=== PATIENT | male | born 1965 | race Caucasian/White ===

== ENCOUNTER 2023-11-21 16:53 | Emergency (ER) | payer OTHER, SELFPAY ==
[2023-11-21 16:58] VITALS: BP 171/107
[2023-11-21 17:30] LABS: % Basophils 0.7 % (0-2); % Immature Granulocytes 0.2 % (0-0.5); % Lymphocytes 14.4 % (20.5-51.1); % Monocytes 8.7 % (1.7-9.3); Absolute Basophils 0.1 10^3/uL (0-0.2); Absolute Eosinophils 0.1 10^3/uL (0-0.7); Absolute Lymphocytes 1.2 10^3/uL (1.2-3.4); Absolute Monocytes 0.7 10^3/uL (0.1-0.6); Absolute Neutrophils 6.2 10^3/uL (1.4-6.5); Hematocrit 41.9 % (39.0-52.0); Hemoglobin 14.9 g/dL (13.0-18.0); Mean Corp Hgb Conc. 35.6 g/dL (33.0-37.0); Mean Corpuscular Hgb 30.2 pg (27.0-31.0); Mean Corpuscular Volume 84.8 fL (80.0-94.0); Nucleated Red Blood Cells % 0 % (-); Platelet Count 208 10^3/uL (130-400); Red Blood Cell Count 4.94 10^6/uL (4.70-6.10); Red Cell Dist. Width 11.9 % (11.5-14.5); White Blood Cell Count 8.3 10^3/uL (4.8-10.8)
[2023-11-21 17:39] LABS: ALT (SGPT) 20 U/L (0-50); AST (SGOT) 31 U/L (17-59); Albumin 4.7 g/dl (3.5-5.0); Alkaline Phosphatase 82 U/L (38-126); Blood Urea Nitrogen 17 mg/dl (9-20); Calcium 9.6 mg/dl (8.4-10.2); Carbon Dioxide 23 mmol/L (22-30); Chloride 104 mmol/L (98-107); Glucose 101 mg/dl (70-99); Potassium 3.8 mmol/L (3.5-5.1); Sodium 138 mmol/L (135-145); Total Bilirubin 1.1 mg/dl (0.2-1.3); Total Protein 7.5 g/dl (6.3-8.2); eGFR > 60.00
[2023-11-21 17:46] LABS: Troponin I < 0.012 ng/ml
[2023-11-21 18:16] VITALS: BP 135/91
--- NOTE | 2023-11-21 18:41 | ED.GENMED ---
History of Present Illness
General
Chief Complaint: Chest Pain
Source: patient
Time Seen by Provider: 11/21/23 17:27
History of Present Illness
History of Present Illness:
58-year-old male with no reported past medical history presenting to the emergency department for evaluation of intermittent chest pain, shortness of breath and left upper extremity tingling sensation associated with a left-sided facial tingling
sensation x 1 day. Patient states he believes his symptoms started yesterday while at a golf outing. Today with symptoms persisting decided to come to the ER for further evaluation. Patient denies any history of similar. Notes he is otherwise
healthy without any other medical conditions or taking any medications. He states that he was unaware that his blood pressure was significantly elevated today and was surprised to see how elevated his blood pressure was while in triage. Family
history was negative for any stroke or other acute neurologic issues as well as cardiac disease. Patient has no other concerns at this time.
Past History
Past History
ED Past Medical History: None (no history of migraines)
ED Past Surgical History: Appendectomy
Social History
Tobacco: Non-smoker
Alcohol: None
Drug: None
Personal:
Living: with family
Employment: Employed
Review of Systems
Review of Systems
All Other Systems: ROS reviewed and negative except as documented in HPI and ROS
Phy Exam
Physical Exam
Physical Exam:
GENERAL: Alert , in no apparent distress
Vital signs: Blood pressure improved to 147/91 at time of my examination
EYE: clear conjunctiva b/l
HEAD: NCAT
ENT: o/p clr, mmm.
CARDIAC: Regular rate and rhythm .
LUNGS: Clear breath sounds bilaterally, no acute respiratory distress, no wheezes/rales/rhonchi
ABDOMEN: Soft, without focal tenderness, no r/g, no cvat
NEUROLOGICAL: Alert and oriented
SKIN: Warm and dry, skin intact.
MUSCULOSKELETAL: well perfused.
PSYCH: Normal and appropriate interaction.
Scores
Heart Failure Risk
Heart Failure Risk Score: Not Applicable
Heart Score for Chest Pain Patients
STEMI patient?: No
History: Slightly or Non-Suspicious
ECG: Normal
Age: >45 - <65 years
Risk Factors: No Risk Factors
Troponin: </= Normal Limit
Heart Score for Chest Pain Patients: 1
Heart Score Risk: 2.5% MACE over next 6 weeks
Withdrawal Assessment of Alcohol
Withdrawal Assessment Completed?: Not applicable
Course
Orders/Labs/Results
Orders:
Orders
11/21/23 16:54
ECG [Electrocardiogram (*1)] Urgent
Reason for Study: Chest Pain
EKG- Treatment ONCE
11/21/23 17:11
CMP [Comprehensive Metabolic Panel] Urgent
Complete Blood Count/With Diff Urgent
Troponin I Urgent
11/21/23 18:13
CT Head W/o Iv Contrast Urgent
Comment:
Reason For Exam: hypertensive urgency
Abnormal Lab Results
11/21/23
17:11
Absolute Monos (auto) 0.7 H 10^3/uL
(0.1-0.6)
Lymphocytes % 14.4 L %
(20.5-51.1)
Glucose 101 H mg/dl
(70-99)
11/21/23 17:11
11/21/23 17:11
Vital Signs
Initial and Last Documented VS:
Initial Vital Signs
Temp Pulse Resp BP Pulse Ox
98.5 F 67 18 171/107 98
11/21/23 16:58 11/21/23 16:58 11/21/23 16:58 11/21/23 16:58 11/21/23 16:58
Last Documented Vital Signs
Temp Pulse Resp BP Pulse Ox
98.5 F 52 13 147/93 98
11/21/23 16:58 11/21/23 19:45 11/21/23 19:45 11/21/23 19:25 11/21/23 19:45
MDM/Problems Addressed
Differential Diagnosis Includes:
Hypertensive urgency/emergency, ACS presentation, CVA, radiculopathy
MDM/Problems Addressed:
58-year-old male present emergency department for evaluation of chest discomfort, mild headache and paresthesia. Found to be hypertensive to 170/100 in the ER. Presently blood pressure is 140/90. Patient notes blood pressure is normally around
110 systolically. EKG nonischemic. Labs including troponin are unremarkable. Given symptoms been ongoing for over 24 hours I do not feel need to repeat a troponin as patient's symptoms have been constant during this time. Will order CT of the
head. Discussed blood pressure management and outpatient follow-up with primary care provider. Patient is agreeable with plan.
*Radiology
Radiology exam reviewed: radiology read reviewed
*Pulse Oximetry
Patient hypoxic: no
*EKG
Interpreted by ED Provider?: Yes
Comparison EKG: no changes
Heart Rate: 66
Rate: normal
Rhythm: sinus
[place]: normal axis
Ischemia: no ischemia
*Sales Operations Assistant Interpretation
Rate: normal
Rhythm: sinus
*Critical Care Note
Total Time (30-74mins, 75-104mins- exclusive of procedures): Not Applicable
Patient Management
Escalation/DeEscalation of care consider admission/obs:
Patient's workup without any significant complications. His blood pressure has remained pretty steady at around 140/90 since being in the emergency department. I encourage patient to keep an eye on his blood pressure over the next few days and to
contact his primary care provider to have this rechecked within the next week or so. Aware of return precautions emergency department. Stable for discharge home.
ED Attending Note
-
Portions of this chart may have been created with voice recognition software.� Occasional wrong word or��sound alike� substitutions may have occurred due to the inherent limitations of voice recognition software.
Discharge Plan
Departure
Patient Disposition: Home (Routine Discharge)
Date of Disposition: 11/21/23
Time of Disposition: 19:38
Patient with high blood pressure during this ER visit?: Yes
Discharge Problem:
Elevated blood pressure reading
Instructions: High Blood Pressure ED
Prescriptions:
No Action
No Current Medications
0
Referrals:
Brody Pate MD [Family Provider] -
Interventions
Interventions:
*Risk Screen - Suicide Last Done: 11/21/23 18:18
*General Assessment Last Done: 11/21/23 18:18
*Neglect/Abuse Screening Last Done: 11/21/23 18:18
ED- Fall Risk Assessment Last Done: 11/21/23 18:18
*ED COVID-19 Vaccine History Last Done: 11/21/23 18:18
*Nursing Disposition Last Done: 11/21/23 19:54
ED- Cardiac Assessment Last Done: 11/21/23 18:18
Discharge Date and Time
Discharge Date/Time: 11/21/23 19:54
Print Language: MACEDONIAN
[2023-11-21 19:00] VITALS: BP 140/90
[2023-11-21 19:25] VITALS: BP 147/93
== END 2023-11-21 19:54 | disposition home or self-care (01) ==
LOC: EMR 16:53
PROVIDERS: Physician Assistant Medical; EMERGENCY PHYSICIAN Emergency Medicine; FAMILY PHYSICIAN Family Medicine
DX: R07.89 Other chest pain (principal); R06.02 Shortness of breath; R20.2 Paresthesia of skin; R03.0 Elevated blood-pressure reading, without diagnosis of hypertension; Z88.0 Allergy status to penicillin
CPT/HCPCS: 99284; 70450; 80053; 84484; 85025; 93005